=== PATIENT | female | born 1990 | race Caucasian/White ===

== ENCOUNTER 2016-08-23 00:05 | Inpatient (IN) ==
[2016-08-23] MEDS ORDERED: STADOL IV PRN ×2 (00:18)
[2016-08-23] MEDS ORDERED: ZOFRAN IV PRN (00:18)
[2016-08-23] MEDS ORDERED: BRETHINE SUBQ PRN (00:18)
[2016-08-23] MEDS ORDERED: AMBIEN PO PRN ×2 (00:18→12:56)
[2016-08-23] MEDS ORDERED: REGLAN PO ONE (00:18)
[2016-08-23] MEDS ORDERED: TYLENOL PO PRN (00:18)
[2016-08-23] MEDS ORDERED: KEFZOL 1 GM/D5W 1 GM/50 ML IVPB IV PRN (00:18)
[2016-08-23] MEDS ORDERED: PITOCIN 30 UNITS/LR 30 UNITS/500 ML IV.SOLN IV SCH (00:18)
[2016-08-23] MEDS ORDERED: PEPCID PO PRN (00:18)
[2016-08-23] MEDS ORDERED: PEPCID PO ONE (00:18)
[2016-08-23] MEDS ORDERED: PEPCID IV PRN (00:18)
[2016-08-23] MEDS: LR 1,000 ML IV ONE ×2 (00:45→08:00)
[2016-08-23 01:56] LABS: MANUAL DIFF NEEDED? NO
[2016-08-23 02:03] LABS: BASO% 0.2 % (0.0-0.8); EOS# 0.06 X1000 (0.0-0.7); EOS% 0.6 % (0.0-10.0); HEMATOCRIT 32.5 % (37.0-47.0); HEMOGLOBIN 10.9 g/dL (12.0-16.0); IMM GRAN# 0.04 X1000 (0.0-0.04); IMM GRAN% 0.4 % (0.0-0.5); LYMPH# 1.55 X1000 (1.2-3.4); LYMPH% 14.3 % (20.5-51.1); MCHC 33.5 g/dL (33-37); MCV 89.5 FL (81-99); MONO# 0.79 X1000 (0.11-0.59); MONO% 7.3 % (1.7-9.3); MPV 11.2 FL (7.4-10.4); NEUT% 77.2 % (42.2-75.2); PLT 159 X1000 (130-400); RBC 3.63 XMIL (4.2-5.4)
[2016-08-23] MEDS ORDERED: CYTOTEC PO ONE (03:00)
[2016-08-23] MEDS: STADOL IV PRN ×2 (03:55→07:01)
[2016-08-23] MEDS ORDERED: CYTOTEC PO SCH (04:18)
[2016-08-23 07:03] LABS: URINE SOURCE VOIDED
[2016-08-23] MEDS ORDERED: FENTANYL-BUPIV-NS 2 MCG-0.1% 200 ML EPIDURAL PRN (07:07)
[2016-08-23 08:00] LABS: BILIRUBIN URINE NEGATIVE (NEGATIVE); BLOOD URINE NEGATIVE (NEGATIVE); CLARITY SL. CLOUDY (CLEAR); COLOR AMBER; GLUCOSE URINE NEGATIVE (NEGATIVE); LEUKOCYTES URINE TRACE (NEGATIVE); NITRITE URINE NEGATIVE (NEGATIVE); PROTEIN URINE TRACE mg/dL (NEGATIVE); UROBILINOGEN URINE 4+(12 mg/dL)
[2016-08-23] MEDS: ZOFRAN IV PRN ×2 (09:57→14:56)
[2016-08-23] MEDS ORDERED: XYLOCAINE-MPF 1% ONE (11:43)
[2016-08-23] MEDS ORDERED: MINERAL OIL ONE (11:43)
[2016-08-23] MEDS ORDERED: HYDROXYZINE PO PRN (12:56)
[2016-08-23] MEDS ORDERED: BOOSTRIX VACCINE IM ONE (12:56)
[2016-08-23] MEDS ORDERED: MINERAL OIL PO PRN (12:56)
[2016-08-23] MEDS ORDERED: HYDROXYZINE IM PRN (12:56)
[2016-08-23] MEDS ORDERED: M-M-R II VACCINE SUBQ ONE (12:56)
[2016-08-23] MEDS ORDERED: XYLOCAINE-MPF 1% INJ PRN (12:56)
[2016-08-23] MEDS ORDERED: CYTOTEC PO PRN (12:56)
[2016-08-23] MEDS ORDERED: PERI MEDS (DERMOPLAST/NUPERCAINAL/TUCKS) MISC PRN (12:56)
[2016-08-23] MEDS ORDERED: PITOCIN IM PRN (12:56)
[2016-08-23] MEDS ORDERED: PITOCIN 30 UNITS/LR 30 UNITS/500 ML IV.SOLN IV ONE (12:56)
[2016-08-23] MEDS ORDERED: BENADRYL IV PRN (12:56)
[2016-08-23] MEDS ORDERED: BENADRYL PO PRN (12:56)
[2016-08-23] MEDS ORDERED: NORCO-5 PO PRN (12:56)
[2016-08-23] MEDS: PITOCIN 20 UNITS/LR 20 UNITS/1,000 ML IV.SOLN IV SCH ×2 (13:06→15:35)
[2016-08-23] MEDS: MOTRIN PO PRN (17:35)
[2016-08-23] MEDS: PERICOLACE PO SCH (20:32)
[2016-08-24] MEDS: NORCO-10 PO PRN ×5 (03:40→22:04)
[2016-08-24] MEDS: MOTRIN PO PRN ×2 (03:40→12:36)
[2016-08-24 07:09] LABS: HEMATOCRIT 31.6 % (37.0-47.0); HEMOGLOBIN 10.3 g/dL (12.0-16.0); MCH 29.5 PG (27-31); MCHC 32.6 g/dL (33-37); MCV 90.5 FL (81-99); MPV 11.7 FL (7.4-10.4); RBC 3.49 XMIL (4.2-5.4)
[2016-08-24] MEDS: PERICOLACE PO SCH (20:06)
[2016-08-25 08:06] VITALS: BP 102/61
== END 2016-08-25 09:50 | disposition home or self-care (01) ==
LOC: P.LD 00:05 → P.WC 18:37
PROVIDERS: ADMIT Obstetrics & Gynecology; ATTEND Obstetrics & Gynecology